=== PATIENT | female | born 1970 | race Two or more races ===

== ENCOUNTER 2017-05-12 18:48 | Emergency (ER) | payer MEDICAID ==
[2017-05-12 19:01] VITALS: TEMP 98.3
[2017-05-12] MEDS ORDERED: Sodium Chloride 0.9% 1,000 ML IV ONE (19:19)
[2017-05-12 19:33] LABS: BASO # 0.1 K/uL (0.0-0.2); BASO % 0.7 % (0.0-2.0); EOS # 0.1 K/uL (0.0-0.7); HEMATOCRIT 40.2 % (34.0-47.0); LYMPH # 3.4 K/uL (1.0-4.3); LYMPH % 39.2 % (20.0-40.0); MEAN CELL VOLUME 95.5 fL (81.0-99.0); MEAN CORPUSCULAR HEMOGLOBIN 31.4 pg (27.0-31.0); MEAN CORPUSCULAR HGB CONC 32.8 g/dL (33.0-37.0); MEAN PLATELET VOLUME 7.5 fL (7.2-11.7); MONO # 0.6 K/uL (0.0-0.8); MONO % 6.5 % (0.0-10.0); RED CELL DISTRIBUTION WIDTH 13.7 % (11.5-14.5); WHITE BLOOD COUNT 8.6 K/uL (4.8-10.8)
[2017-05-12] MEDS ORDERED: Sodium Chloride 0.9% 1,000 ML ONE (19:33)
[2017-05-12 19:41] LABS: CHLORIDE 106 mmol/L (98-107); SODIUM 140 mmol/L (132-148)
[2017-05-12 19:42] LABS: POTASSIUM 4.6 mmol/L (3.6-5.2)
[2017-05-12 19:44] LABS: ALB/GLOB RATIO 1.2 (1.0-2.1); ALKALINE PHOSPHATASE 50 U/L (38-126); ALT/SGPT 17 U/L (9-52); AST/SGOT 20 U/L (14-36); BILIRUBIN,TOTAL 0.8 mg/dL (0.2-1.3); BLOOD UREA NITROGEN 15 mg/dL (7-17); CARBON DIOXIDE 24 mmol/L (22-30); GFR AFRICAN-AMERICAN > 60; TOTAL PROTEIN 7.5 g/dL (6.3-8.3)
[2017-05-12 19:45] LABS: CALCIUM 9.3 mg/dl (8.6-10.4); GLUCOSE,RANDOM 99 mg/dL (65-105)
[2017-05-12 20:17] VITALS: BP 113/67; PULSE 77; RESP 16; O2SAT 98
--- NOTE | 2017-05-12 20:51 | C.PDOC ---
History Of Present Illness 47 year old female presents to the ED with complaints of intermittent episodes of dizziness for one day and states she "felt hot" today. Patient notes a history of MS and vertigo but did not take her meclizine. She denies chest pain , shortness of breath, abdominal pain, or changes in appetite. Chief Complaint (Nursing): Dizziness/Lightheaded History Per: Patient History/Exam Limitations: no limitations Onset/Duration Of Symptoms: Days (1 day) Current Symptoms Are (Timing): Still Present Seizure Or Post-ictal Symptoms: None Fall Associated With With Symptoms: No Recent travel outside of the [place]: No Past Medical History Reviewed: Historical Data, Nursing Documentation, Vital Signs Vital Signs: Last Vital Signs Temp 98.3 F 05/12/17 20:16 Pulse 77 05/12/17 20:16 Resp 16 05/12/17 20:16 BP 113/67 05/12/17 20:16 Pulse Ox 98 05/12/17 21:15 - Medical History PMH: Multiple Sclerosis, Pneumonia Family History: States: Unknown Family Hx - Social History Hx Alcohol Use: No Hx Substance Use: No - Immunization History Hx Tetanus Toxoid Vaccination: Yes Hx Influenza Vaccination: Yes Hx Pneumococcal Vaccination: (unk) Review Of Systems Constitutional: Negative for: Fever, Chills Cardiovascular: Negative for: Chest Pain, Palpitations Respiratory: Negative for: Cough, Shortness of Breath Gastrointestinal: Negative for: Nausea, Vomiting, Abdominal Pain, Diarrhea Neurological: Positive for: Dizziness. Negative for: Weakness, Numbness, Change in Speech, Confusion, Seizures, Headache Physical Exam - Physical Exam Appears: Non-toxic, No Acute Distress Skin: Warm, Dry Head: Atraumatic Eye(s): bilateral: Normal Inspection, PERRL, EOMI Oral Mucosa: Dry Neck: Supple Chest: Symmetrical, No Deformity Cardiovascular: Rhythm Regular Respiratory: No Rales, No Rhonchi, No Stridor, No Wheezing Gastrointestinal/Abdominal: Soft, No Tenderness, No Distention, No Guarding, No Rebound Extremity: Normal ROM, No Tenderness, No Calf Tenderness Neurological/Psych: Oriented x3, Normal Speech, Normal Cognition, Normal Cranial Nerves, Normal Motor, Normal Sensation, Normal Reflexes Gait: Steady ED Course And Treatment - Laboratory Results Result Diagrams: 05/12/17 19:31 05/12/17 19:31 ECG Rhythm: Sinus Rhythm (79 bpm) Interpretation Of ECG: Normal axis, normal intervals. O2 Sat by Pulse Oximetry: 98 (room air ) Progress Note: Upon re-evaluation patient stated they felt better. Patient will be discharged and was instructed to follow up with PMD. Reevaluation Time: 20:00 Reassessment Condition: Improved Disposition - Disposition Referrals: [facility], [Non-Staff] - Disposition: HOME/ ROUTINE Disposition Time: 20:20 Condition: IMPROVED Additional Instructions: Thank you for letting us take care of you today. Your provider was Dr. Magana. You were treated for dehydration and dizziness. The emergency medical care you received today was directed at your acute symptoms. If you were prescribed any medication, please fill it and take as directed. It may take several days for your symptoms to resolve. Return to the Emergency Department if your symptoms worsen, do not improve, or if you have any other problems. Please contact your doctor or call one of the physicians/clinics you have been referred to that are listed on the Patient Visit Information form that is included in your discharge packet. Bring any paperwork you were given at discharge with you along with any medications you are taking to your follow up visit. Our treatment cannot replace ongoing medical care by a primary care provider (PCP) outside of the emergency department. Thank you for allowing the [facility] team to be part of your care today. Follow up with your doctor in 2-3 days for re-evaluation. Instructions: Dehydration (ED), Dizziness (ED) - Clinical Impression Clinical Impression: Vertigo, Dehydration - Scribe Statement The provider has reviewed the documentation as recorded by the Silvestreibquinton Astorga All medical record entries made by the Kj were at my direction and personally dictated by me. I have reviewed the chart and agree that the record accurately reflects my personal performance of the history, physical exam, medical decision making, and the department course for this patient. I have also personally directed, reviewed, and agree with the discharge instructions and disposition.
--- NOTE | 2017-05-15 14:06 | CARD ---
APPROVED REPORT EKG Measurement Heart [id number] <Conclusion> Normal sinus rhythm Normal ECG
== END 2017-05-12 20:16 | disposition home or self-care (01) ==
LOC: C.ER 18:48
DX: E86.0 Dehydration (principal); R42 Dizziness and giddiness
CPT/HCPCS: 80053; 84484; 85025; 96374; 99285; J2765; J7040

== ENCOUNTER 2017-10-17 11:21 | Emergency (ER) | payer MEDICAID ==
[2017-10-17 11:30] VITALS: RESP 16; O2SAT 97
--- NOTE | 2017-10-17 12:18 | C.PDOC ---
History Of Present Illness 47 y/o female, with history of multiple sclerosis, presents to the ED complaining of pain in the left hand and forearm. Patient states she fell out of her bed and landed on her arm the previous night. She denies any head injury , loss of consciousness, seizures, diarrhea, headache, nausea, chills. No other complaints. Time Seen by Provider: 10/17/17 12:05 Chief Complaint (Nursing): Upper Extremity Problem/Injury History Per: Patient History/Exam Limitations: no limitations Onset/Duration Of Symptoms: Hrs Current Symptoms Are (Timing): Still Present Past Medical History Vital Signs: Last Vital Signs Temp 98.6 F 10/17/17 11:27 Pulse 77 10/17/17 11:27 Resp 16 10/17/17 11:27 BP 124/86 10/17/17 11:27 Pulse Ox 97 10/17/17 13:22 - Medical History PMH: Bronchitis, Multiple Sclerosis, Pneumonia Surgical History: No Surg Hx Family History: States: No Known Family Hx - Social History Hx Alcohol Use: No Hx Substance Use: No - Immunization History Hx Tetanus Toxoid Vaccination: Yes Hx Influenza Vaccination: Yes Hx Pneumococcal Vaccination: (unk) Review Of Systems Constitutional: Negative for: Chills Gastrointestinal: Negative for: Nausea, Diarrhea Musculoskeletal: Positive for: Arm Pain, Hand Pain Neurological: Negative for: Seizures, Headache, Other (loss of consciouness) Physical Exam - Physical Exam Appears: Other (Uncomfortable) Skin: Normal Color Head: Atraumatic, Normacephalic Neck: Supple Extremity: Normal ROM, No Deformity, Swelling (swelling noted to left forearm and hand), Other (Ecchymosis noted to kunckles of left hand) Neurological/Psych: Oriented x3, Normal Speech, Normal Cognition ED Course And Treatment O2 Sat by Pulse Oximetry: 97 (EA) Pulse Ox Interpretation: Normal - Other Rad XR Left Hand X-Ray: Viewed By Me, Read By Radiologist Interpretation: Normal radiographs of left arm. Medical Decision Making Medical Decision Making: Impression: Left hand pain Plan: Left hand X-ray Tylenol PO Time: 1319 [place] [employer] reviewed and patient has history of Tramadol use, with last prescription in March 2017. Disposition Counseled Patient/Family Regarding: Studies Performed, Diagnosis, Need For Followup, Rx Given - Disposition Referrals: [facility] [Outside] Disposition: HOME/ ROUTINE Disposition Time: 13:23 Condition: STABLE Prescriptions: Ibuprofen [Motrin] 600 mg PO TID #15 tab Instructions: [facility] (ED) Forms: [facility] (Haitian), General Discharge Instructions - POA Present On Arrival: None - Clinical Impression Clinical Impression: Contusion of left hand - Scribe Statement The provider has reviewed the documentation as recorded by the Silvestreibquinton Levine Provider Attestation: All medical record entries made by the Silvestreibquinton were at my direction and personally dictated by me. I have reviewed the chart and agree that the record accurately reflects my personal performance of the history, physical exam, medical decision making, and the department course for this patient. I have also personally directed, reviewed, and agree with the discharge instructions and disposition.
--- NOTE | 2017-10-17 12:43 | RAD ---
PROCEDURE: Left Hand Radiographs. HISTORY: fall COMPARISON: None. FINDINGS: BONES: Normal. No fracture. JOINTS: Normal. No osteoarthritic changes. SOFT TISSUES: Normal. OTHER FINDINGS: None. IMPRESSION: Normal left hand radiographs.
[2017-10-17 13:46] VITALS: BP 106/75; PULSE 62; TEMP 97.8
== END 2017-10-17 13:46 | disposition home or self-care (01) ==
LOC: C.ER 11:21
DX: S60.222A Contusion of left hand, initial encounter (principal); W06.XXXA Fall from bed, initial encounter

== ENCOUNTER 2018-05-15 11:23 | Emergency (ER) | payer MEDICAID ==
[2018-05-15 11:37] VITALS: BP 144/82; PULSE 86; RESP 16; TEMP 98; O2SAT 98
--- NOTE | 2018-05-15 11:51 | C.PDOC ---
History Of Present Illness 48 year old female, whose PMHx includes multiple sclerosis, presents to the ED for evaluation of right shoulder and right-sided neck pain. Patient reportedly sustained a fall in February, but had negative X-Rays at the time. Patient is scheduled for an MRI this Monday and is requesting analgesics in the ED. She denies fever, chills, extremity numbness/weakness, or any recent injuries to the area. Time Seen by Provider: 05/15/18 11:34 Chief Complaint (Nursing): Upper Extremity Problem/Injury History Per: Patient History/Exam Limitations: no limitations Onset/Duration Of Symptoms: Days Current Symptoms Are (Timing): Still Present Quality: "Pain" Additional History Per: Patient Past Medical History Reviewed: Historical Data, Nursing Documentation, Vital Signs Vital Signs: Last Vital Signs Temp 98 F 05/15/18 11:34 Pulse 86 05/15/18 11:34 Resp 16 05/15/18 11:34 BP 144/82 05/15/18 11:34 Pulse Ox 98 05/15/18 12:17 - Medical History PMH: Bronchitis, Multiple Sclerosis, Pneumonia Surgical History: No Surg Hx Family History: States: Unknown Family Hx - Social History Hx Alcohol Use: No Hx Substance Use: No - Immunization History Hx Tetanus Toxoid Vaccination: Yes Hx Influenza Vaccination: Yes Hx Pneumococcal Vaccination: (unk) Review Of Systems Constitutional: Negative for: Fever, Chills Musculoskeletal: Positive for: Neck Pain (right), Shoulder Pain (right) Neurological: Negative for: Weakness, Numbness Physical Exam - Physical Exam Appears: Non-toxic, No Acute Distress Skin: Normal Color, Warm, Dry Head: Atraumatic, Normacephalic Eye(s): bilateral: Normal Inspection Oral Mucosa: Moist Neck: Supple Chest: Symmetrical, No Deformity, No Tenderness Cardiovascular: Rhythm Regular Respiratory: Normal Breath Sounds Back: No Vertebral Tenderness, No Paraspinal Tenderness Extremity: Normal ROM, Capillary Refill (less than 2 seconds ) Neurological/Psych: Oriented x3, Normal Speech, Normal Cognition, Normal Sensation Gait: Steady ED Course And Treatment O2 Sat by Pulse Oximetry: 98 (on RA) Pulse Ox Interpretation: Normal Medical Decision Making Medical Decision Making: Impression: 48 year old female with right neck and shoulder pain Plan: * Motrin PO * reassess and disposition Progress: Motrin PO administered. On re-exam, patient is resting comfortably, showing no signs of distress and reports an improvement in her pain. Patient is ambulatory in the ED with a steady gait and is stable for discharge. Patient is advised to keep her MRI appointment and follow up with her PMD within 1-2 days for further evaluation. suspect cervical radiculopathy pt declines xr. advise out tp fu. as per pt, neurologist states symptoms unlikely 2/2 ms. Disposition - Disposition Referrals: [facility] [Outside] [facility] [Outside] Catia Buck MD [Staff Provider] - Disposition: HOME/ ROUTINE Disposition Time: 11:45 Condition: STABLE Additional Instructions: please obtain your scheduled mri, return to er with worsening symptom sor concerns. Prescriptions: Ibuprofen [Motrin Tab] 600 mg PO Q8 PRN #21 tab PRN Reason: Pain, Mild (1-3) Naproxen [Naprosyn] 500 mg PO BID PRN #14 tab PRN Reason: Pain, Mild (1-3) Instructions: Neck Pain, Shoulder Pain (DC) Forms: [facility] (Yi) - Clinical Impression Clinical Impression: Neck pain, Shoulder pain - Scribe Statement The provider has reviewed the documentation as recorded by the Scribe (Alicia Nunez) Provider Attestation: All medical record entries made by the Scribe were at my direction and personally dictated by me. I have reviewed the chart and agree that the record accurately reflects my personal performance of the history, physical exam, medical decision making, and the department course for this patient. I have also personally directed, reviewed, and agree with the discharge instructions and disposition.
== END 2018-05-15 12:32 | disposition home or self-care (01) ==
LOC: C.ER 11:23
DX: M54.2 Cervicalgia (principal); M25.511 Pain in right shoulder